=== PATIENT | male | born 1960 | race Caucasian/White ===

== ENCOUNTER 2016-06-10 15:35 | Inpatient (IN) | payer BC, OTHER ==
[2016-06-10] MEDS ORDERED: ASPIRIN 81 MG CHEWABLE TABLETS PO ONE (15:45)
--- NOTE | 2016-06-10 15:45 | PDOC ---
Rapid Medical Evaluation Medical Evaluation: Allergies Allergy/AdvReac Type Severity Reaction Status Date / Time No Known Allergies Allergy Verified 11/24/14 09:48 o I have performed a brief in-person evaluation of this patient. o The patient presents with a chief complaint of: chest pain and dizziness x 2 days, left arm weakness/pain, SOB on exertion. 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 o Pertinent physical exam findings: tachycardic, no LE edema o I have ordered the following: ekg, labs, cxr, ASA o The patient will proceed to the ED for further evaluation. <Ludivina Villa - Last Filed: 06/10/16 15:36> Medical Evaluation: Allergies Allergy/AdvReac Type Severity Reaction Status Date / Time No Known Allergies Allergy Verified 11/24/14 09:48 Vital Signs Temp Pulse Resp BP Pulse Ox 98.4 F 110 H 18 130/74 100 06/10/16 17:49 06/10/16 17:49 06/10/16 17:49 06/10/16 17:49 06/10/16 17:49 <Yolanda Devlin - Last Filed: 06/10/16 18:14> Time Seen by Provider: 06/10/16 15:36
[2016-06-10 15:47] VITALS: BMI 28.1
--- NOTE | 2016-06-10 15:55 | EKG ---
Test Reason : Blood Pressure : / mmHG Vent. Rate : 108 BPM Atrial Rate : 108 BPM P-R Int : 128 ms QRS Dur : 072 ms QT Int : 320 ms P-R-T Axes : 042 032 043 degrees QTc Int : 428 ms SINUS TACHYCARDIA NONSPECIFIC T WAVE ABNORMALITY ABNORMAL ECG WHEN COMPARED WITH ECG OF 24-NOV-2014 15:20, VENT. RATE HAS INCREASED BY 49 BPM T WAVE VARIATION Confirmed by SAÚL KIMBLE MD ([id number]) on 06/10/2016 3:54:41 PM Referred By: Confirmed By:SAÚL KIMBLE MD
[2016-06-10 17:11] LABS: BASOPHIL 0.4 % (0-2.0); EOSINOPHIL 0.4 % (0-4.5); MCH 28.2 pg (25.7-33.7); MCHC 33.3 g/dl (32.0-35.9); MEAN CELL VOLUME 84.8 fl (80-96); MEAN PLT VOLUME 7.8 fl (7.5-11.1); NEUTROPHILS 76.3 % (42.8-82.8); PLATELET COUNT 223 K/MM3 (134-434); RDW 13.6 % (11.9-15.9); WHITE BLOOD COUNT 11.8 K/mm3 (4.0-10.0)
[2016-06-10] MEDS ORDERED: PANTOPRAZOLE SODIUM 40 MG in SODIUM CHLORIDE 100 ML IVPB ONE (17:22)
[2016-06-10] MEDS ORDERED: PANTOPRAZOLE SODIUM 100 ML IVPB ONE (17:38)
--- NOTE | 2016-06-10 18:15 | PDOC ---
History of Present Illness <Stacy Jensena - Last Filed: 06/10/16 19:31> <Yolanda Devlin - Last Filed: 06/11/16 01:52> - General Chief Complaint: Chest Pain Stated Complaint: CHEST PAIN, LT HAND NUMBNESS Time Seen by Provider: 06/10/16 15:36 - History of Present Illness Initial Comments: 06/10/16 18:15 Patient is a 56 year old male with significant medical hx of [place] x 2 with cardiac stent (on Effient) who is presenting to the ED with two days of lightheadedness, dizziness, dyspnea on exertion, and black, tarry stools. The patient complains of sudden dizziness and lightheadedness that occur with positional change and standing up. He endorses exertional dyspnea, specifically when he walks, which he states is unusual. The patient also complains of diarrhea, epigastric pain, and lower extremity cramping. He denies fever, chills , vomiting, and chest pain. PMD: Claus Williamson MD Bss Solution Architect: Rock Gonzales MD Surgical Hx: Appendectomy, one cardiac stent x 1 (2014) NKDA (Georgia Jensen) Past History <Georgia Jensen - Last Filed: 06/10/16 19:31> - Past Medical History Cardiac Disorders: Yes (stent) - Surgical History Abdominal Surgery: Yes Appendectomy: Yes Cardiac Surgery: Yes (stent) - Psycho/Social/Smoking Cessation Hx Anxiety: No Suicidal Ideation: No Smoking History: Never smoked Have you smoked in the past 12 months: No If you are a former smoker, when did you quit?: 2009 Cigars Per Day: 1 Hx Alcohol Use: No Drug/Substance Use Hx: No Substance Use Type: None Hx Substance Use Treatment: No <Yolanda Devlin - Last Filed: 06/11/16 01:52> - Past Medical History Allergies/Adverse Reactions: Allergies Allergy/AdvReac Type Severity Reaction Status Date / Time No Known Allergies Allergy Verified 11/24/14 09:48 Home Medications: Ambulatory Orders Lisinopril [Zestril] 2.5 mg PO DAILY 06/10/16 Metoprolol Tartrate 25 mg PO DAILY 06/10/16 Prasugrel HCl [Effient] 10 mg PO DAILY 06/10/16 Rosuvastatin Calcium [Crestor] 10 mg PO DAILY 06/10/16 Cardiac Specific PMH - Complaint Specific PMHX Myocardial Infarction: Yes <Yolanda Devlin - Last Filed: 06/11/16 01:52> Review of Systems <CamilaGeorgia - Last Filed: 06/10/16 19:31> <Yolanda Devlin - Last Filed: 06/11/16 01:52> - Review of Systems Comments:: 06/10/16 18:17 CONSTITUTIONAL: Absent: fever, chills, diaphoresis, generalized weakness, malaise, loss of appetite HEENT: Absent: rhinorrhea, nasal congestion, throat pain, throat swelling, difficulty swallowing, mouth swelling, ear pain, eye pain, visual changes CARDIOVASCULAR: Present: lightheadedness Absent: chest pain, syncope, palpitations, irregular heart rate, peripheral edema RESPIRATORY: Present: dyspnea with exertion Absent: cough, shortness of breath, orthopnea, wheezing, stridor, hemoptysis GASTROINTESTINAL: Present: epigastric pain, diarrhea, black stooling Absent: abdominal distension, nausea, vomiting, constipation, hematochezia GENITOURINARY: Absent: dysuria, frequency, urgency, hesitancy, hematuria, flank pain, genital pain MUSCULOSKELETAL: Present: lower extremity cramping Absent: myalgia, arthralgia, joint swelling SKIN: Absent: rash, itching, pallor HEMATOLOGIC/IMMUNOLOGIC: Absent: easy bleeding, easy bruising, lymphadenopathy, frequent infections ENDOCRINE: Absent: unexplained weight gain, unexplained weight loss, heat intolerance, cold intolerance NEUROLOGIC: Present: dizziness Absent: headache, focal weakness or paresthesia, unsteady gait, seizure, mental status changes, bladder or bowel incontinence. PSYCHIATRIC: Absent: anxiety, depression, suicidal or homicidal ideation, hallucinations (Georgia Jensen) *Physical Exam <CamilaGeorgia - Last Filed: 06/10/16 19:31> <Yolanda Devlin - Last Filed: 06/11/16 01:52> - Vital Signs Last Vital Signs Temp Pulse Resp BP Pulse Ox 98 F 76 18 109/68 98 06/11/16 01:15 06/11/16 01:15 06/11/16 01:15 06/11/16 01:15 06/11/16 01:15 - Physical Exam Comments: 06/10/16 18:18 GENERAL: Well developed, well nourished. Awake and alert. No acute distress. HEENT: Normocephalic, atraumatic. PERRLA, EOMI. No conjunctival pallor. Sclera are non- icteric. Moist mucous membranes. Oropharynx is clear. NECK: Supple. Full ROM. No JVD. Carotid pulses 2+ and symmetric, without bruits. No thyromegaly. No lymphadenopathy. CARDIOVASCULAR: Tachycardic. No murmurs, rubs, or gallops. Distal pulses are 2+ and symmetric. PULMONARY: No evidence of respiratory distress. Lungs clear to auscultation bilaterally. No wheezing, rales or rhonchi. ABDOMINAL: Soft. Non-tender. Non-distended. No rebound or guarding. No organomegaly. Normoactive bowel sounds. MUSCULOSKELETAL: Normal range of motion at all joints. No bony deformities or tenderness. No CVA tenderness. EXTREMITIES: No cyanosis. No clubbing. No edema. No calf tenderness. SKIN: Warm and dry. Normal capillary refill. No rashes. No jaundice. NEUROLOGICAL: Alert, awake, appropriate. Cranial nerves 2-12 intact. Normal speech. Gait is normal without ataxia. PSYCHIATRIC: Cooperative. Good eye contact. Appropriate mood and affect. RECTAL: Scant stool in the vault. (Georgia Jensen) ED Treatment Course - LABORATORY CBC & Chemistry Diagram: 06/10/16 16:50 06/10/16 16:50 - Consult/PCP Time Called: 19:30 (Spoke with Dr. Gonzales, he requested to hold the Effient.) Case discussed with personal care physician: Rock Gonzales <Georgia Jensen - Last Filed: 06/10/16 19:31> - LABORATORY CBC & Chemistry Diagram: 06/10/16 16:50 06/10/16 16:50 <Yolanda Devlin - Last Filed: 06/11/16 01:52> - ADDITIONAL ORDERS Additional order review: Laboratory Results 06/10/16 06/10/16 06/10/16 17:10 16:50 16:50 INR Sodium Potassium Chloride Carbon Dioxide Anion Gap BUN Creatinine Creat Clearance w eGFR Random Glucose Calcium Magnesium Total Bilirubin AST ALT Alkaline Phosphatase Creatine Kinase Creatine Kinase Index CK-MB (CK-2) CK-MB (CK-2) Rel Index Cancelled Troponin I Total Protein Albumin Stool Occult Blood Positive Blood Type O POSITIVE Antibody Screen Negative Crossmatch See Detail 06/10/16 06/10/16 16:50 16:50 INR 1.23 H Sodium 141 Potassium 4.0 Chloride 110 H Carbon Dioxide 21 Anion Gap 10 BUN 28 H D Creatinine 0.8 Creat Clearance w eGFR > 60 Random Glucose 134 H D Calcium 7.4 L Magnesium 1.9 Total Bilirubin 0.2 D AST 14 L D ALT 32 D Alkaline Phosphatase 37 L D Creatine Kinase 263 D Creatine Kinase Index 0.7 CK-MB (CK-2) 1.729 CK-MB (CK-2) Rel Index Troponin I < 0.02 D Total Protein 5.5 L D Albumin 2.9 L D Stool Occult Blood Blood Type Antibody Screen Crossmatch 06/10/16 16:50 RBC 2.64 L D MCV 84.8 MCHC 33.3 RDW 13.6 MPV 7.8 Neutrophils % 76.3 Lymphocytes % 14.4 D Monocytes % 8.5 Eosinophils % 0.4 Basophils % 0.4 - Medications Given in the ED: ED Medications Discontinued Medications Generic Name Dose Route Start Last Admin Trade Name Freq PRN Reason Stop Dose Admin Aspirin 162 mg 06/10/16 15:45 06/10/16 17:42 Asa - PO 06/10/16 15:46 Not Given ONCE ONE Pantoprazole Sodium 40 mg/ 100 mls @ 200 mls/hr 06/10/16 17:22 06/10/16 17:41 Sodium Chloride IVPB 06/10/16 17:51 200 mls/hr ONCE ONE Administration Medical Decision Making <Georgia Jensen - Last Filed: 06/10/16 19:31> - Critical Care Time Total Critical Care Time (minutes): 120 Critical Care Statement: The care of this patient involved high complexity decision making to prevent further life threatening deterioration of the patient 's condition and/or to evalute & treat vital organ system(s) failure or risk of failure. <Yolanda Devlin - Last Filed: 06/11/16 01:52> - Medical Decision Making 06/11/16 01:50 56 YO MALE HAD 2 DAYS OF EXERTIONAL DYSPNEA,DIZZINESS,THEN DEV CHEST PAIN AND BLACK TARRY STOOLS hbg only 7 and hct 22, positive stool blood -pt admitted for transfusions -spoke w Dr Gonzales and brooklynn will be held -first cardiac enzyme negative (Yolanda Devlin) *DC/Admit/Observation/Transfer <Georgia Jensen - Last Filed: 06/10/16 19:31> - Discharge Dispostion Admit: Yes <Yoalnda Devlin - Last Filed: 06/11/16 01:52> Diagnosis at time of Disposition: Tachycardia Chest pain Qualifiers: Chest pain type: unspecified Qualified Code(s): R07.9 - Chest pain, unspecified GI bleed Qualifiers: GI bleed type/associated pathology: unspecified gastrointestinal hemorrhage type Qualified Code(s): K92.2 - Gastrointestinal hemorrhage, unspecified Anemia Qualifiers: Anemia type: unspecified type Qualified Code(s): D64.9 - Anemia, unspecified - Referrals - Attestations Scribe Attestion: 06/10/16 18:19 Documentation prepared by Georgia Jensen, acting as medical driver for Yolanda Devlin MD. (Georgia Jensen)
[2016-06-10 18:37] LABS: ALBUMIN 2.9 g/dl (3.4-5.0); ANION GAP 10 (8-16); BILIRUBIN,TOTAL 0.2 mg/dL (0.2-1.0); CALCIUM 7.4 mg/dL (8.5-10.1); CO2 21 mmol/L (21-32); CREATININE 0.8 mg/dL (0.7-1.3); GLUCOSE,RANDOM 134 mg/dL (74-106); MAGNESIUM 1.9 mg/dL (1.8-2.4); SGOT/AST 14 U/L (15-37); SGPT/ALT 32 U/L (12-78); TOT PROT 5.5 g/dl (6.4-8.2)
[2016-06-10 18:40] LABS: ALK PHOS 37 U/L (45-117); TROPONIN I < 0.02 ng/ml (0.00-0.05)
[2016-06-10 18:50] LABS: INR 1.23 (0.82-1.09); PROTHROMBIN TIME (PATIENT) 13.6 SEC (9.98-11.88)
--- NOTE | 2016-06-10 20:06 | HP ---
CHIEF COMPLAINT: Dizziness, black colored stool PCP: Claus Johnson Dr. (Field Agent) HISTORY OF PRESENT ILLNESS: Patient is a 56-year-old male presented to the ED with the chief complaints of dizziness and black colored stool. As per the patient, he noticed black colored stool x 3days, moderate in amount. Has been having 3-4 episodes of bowl movements, fowl smelling, associated with Left upper quadrant pain, 5/10 in intensity, non radiating, pressure type. Abdominal pain was associated with nausea but no episodes of vomiting. Patient mentions that since 2days he has been feeling very dizzy, says 'room spinning around me'. Also reports of having shortness of breath on exertion since 2 days which he never had before. Had palpitations on/off. Denies chest pain or cough. Had fevers (not recorded) with chills but no rigors. Normally he sweats at night and was feeling very hot for the past few days, had to open the windows at night. Also mentions of having numbness on the left arms and fingers but no tingling sensation Denies headache, loc or trauma. Patient had a large bowel movement here in the ED, it was dark colored stool, fowl smelling. He felt very dizzy even walking few steps but didn't fall. ER course was notable for: (1) Tachycardic; Slight leukocytosis (11.8); H/H 7.4/22.4; Troponin x 1 negative (2) Stool of heme occult positive (3) Aspirin 162mg, Pantoprazole 40mg Recent Travel: None PAST MEDICAL HISTORY: [place] x 2 ( x 1stents) on Prasugrel, Duodenal ulcer PAST SURGICAL HISTORY: Appendectomy, had surgery in his nose Social History: Smoking: Quit 4-5yrs ago Alcohol: Everyday-1 glass of wine/day Drugs: Denies Family History: Unknown Allergies No Known Allergies Allergy (Verified 11/24/14 09:48) HOME MEDICATIONS: Home Medications Medication Instructions Recorded Lisinopril [Zestril] 2.5 mg PO DAILY 06/10/16 Metoprolol Tartrate 25 mg PO DAILY 06/10/16 Prasugrel HCl [Effient] 10 mg PO DAILY 06/10/16 Rosuvastatin Calcium [Crestor] 10 mg PO DAILY 06/10/16 REVIEW OF SYSTEMS CONSTITUTIONAL: Present: generalized weakness Absent: fever, chills, diaphoresis, , malaise, loss of appetite, weight change HEENT: Absent: rhinorrhea, nasal congestion, throat pain, throat swelling, difficulty swallowing, mouth swelling, ear pain, eye pain, visual changes CARDIOVASCULAR: Absent: chest pain, syncope, palpitations, irregular heart rate, lightheadedness , peripheral edema RESPIRATORY: Absent: cough, shortness of breath, dyspnea with exertion, orthopnea, wheezing, stridor, hemoptysis GASTROINTESTINAL: Present: abdominal pain, black colored stool, diarrhea Absent: abdominal distension, nausea, vomiting, constipation. GENITOURINARY: Absent: dysuria, frequency, urgency, hesitancy, hematuria, flank pain, genital pain MUSCULOSKELETAL: Absent: myalgia, arthralgia, joint swelling, back pain, neck pain SKIN: Absent: rash, itching, pallor HEMATOLOGIC/IMMUNOLOGIC: Absent: easy bleeding, easy bruising, lymphadenopathy, frequent infections ENDOCRINE: Absent: unexplained weight gain, unexplained weight loss, heat intolerance, cold intolerance NEUROLOGIC: Present: dizziness Absent: headache, focal weakness or paresthesias,unsteady gait, seizure, mental status changes, bladder or bowel incontinence PSYCHIATRIC: Absent: anxiety, depression, suicidal or homicidal ideation, hallucinations. PHYSICAL EXAMINATION GENERAL: Patient is lying comforbaly in bed, Awake, alert, and fully oriented, in no acute distress. HEAD: Normal with no signs of trauma. EYES: EOM intact, mild pallor, no icterus, PEERLA EARS, NOSE, THROAT: Ears normal. Moist mucous membranes. NECK: Supple LUNGS: Breath sounds equal, clear to auscultation bilaterally. No wheezes, and no crackles. No accessory muscle use. HEART: Regular rate and rhythm, normal S1 and S2 without murmur, rub or gallop. ABDOMEN: Soft, tenderness over the left upper quadrant, not distended, normoactive bowel sounds, no guarding, no rebound, no masses. No hepatomegaly or splenomegaly. Per rectal exam: Refused MUSCULOSKELETAL: Normal range of motion at all joints. No bony deformities or tenderness. No CVA tenderness. UPPER EXTREMITIES: 2+ pulses, warm, well-perfused. No cyanosis. No clubbing. Cap refill <2 seconds. No peripheral edema. LOWER EXTREMITIES: 2+ pulses, warm, well-perfused. No calf tenderness. No peripheral edema. NEUROLOGICAL: Cranial nerves II-XII intact. Normal speech. Normal gait. PSYCHIATRIC: Cooperative. Good eye contact. Appropriate mood and affect. SKIN: Warm, dry, normal turgor, no rashes or lesions noted. ASSESSMENT/PLAN: Patient is a 56-year-old male with significant past medical history of [place] x 2 ( x 1stents) on Prasugrel, Duodenal ulcers presented to the ED with the chief complaints of dizziness and black colored stool. # Gastrointestinal bleed Patient presented with black colored stool Tachycardic; Slight leukocytosis (11.8); H/H 7.4/22.4; Troponin x 1 negative In the ED, patient received Aspirin 162mg, Pantoprazole 40mg Stool of heme occult positive Admitted in Telemetry 2units of PRBC-will recheck CBC after second transfusion On Protonix drip GI consult placed Most likely needs UGI and LGI endoscopy once patient gets stabilized IV fluids Monitor H/H # Symptomatic Anemia-likely from GI bleed 2units of PRBC # CAD s/p 1 stent Hold Prasugrel due to increased risk of bleeding Hold aspirin # Troponin x 1 negative Next set of troponin pending # FEN IV NS @83mls/hr Electrolytes to be repeated tomorrow NPO # Prophylaxis For GI: On Protonix drip For DVT: On Scds # Code Status: Full code # Dispo: Admitted in Tele. Duration of stay unknown Illness, Investigation and Plan of care explained to the patient. He verbalized understanding. Case seen and discussed with Dr. Mullins. Visit type - Emergency Visit Emergency Visit: Yes ED Registration Date: 06/10/16 Care time: The patient presented to the Emergency Department on the above date and was hospitalized for further evaluation of their emergent condition. - New Patient This patient is new to me today: Yes Date on this admission: 06/10/16 - Critical Care Critical Care patient: No
--- NOTE | 2016-06-10 20:10 | PN ---
<SusannaNereyda robertson - Last Filed: 06/10/16 20:10> Teaching Attending Note Name of Resident: Lilliana Eastman ATTENDING PHYSICIAN STATEMENT I saw and evaluated the patient. I reviewed the resident's note and discussed the case with the resident. I agree with the resident's findings and plan as documented. SUBJECTIVE: OBJECTIVE: ASSESSMENT AND PLAN: <YaritzaMarkos - Last Filed: 06/11/16 02:07> Teaching Attending Note ATTENDING PHYSICIAN STATEMENT I saw and evaluated the patient. I reviewed the resident's note and discussed the case with the resident. I agree with the resident's findings and plan as documented.` SUBJECTIVE: The Patient is a 56 year old male with a significant medical hx of [place] x 2 with cardiac stent (on Effient) who presented to the ED with two days of lightheadedness, dizziness, dyspnea on exertion, abdominal pain, and melena. The patient reported that his lightheadedness, dizziness, and dyspnea were exacerbated by sitting up and walking. The patient described his abdominal pain as non-radiating, pressure sensation, located in the left upper quadrant and a 5 /10 in severity. The patient reported associated diarrhea and epigastric pain. He denies fever, chills, vomiting, and chest pain. OBJECTIVE: Vital Signs: Last Vital Signs Temp Pulse Resp BP Pulse Ox 98.4 F 97 H 18 110/66 100 06/10/16 21:00 06/10/16 21:00 06/10/16 21:00 06/10/16 21:00 06/10/16 21:00 Physical Exam: GEN: NAD HEENT: NCAT, PERRL CARD: RRR, S1 S2 RESP: CTAB ABD: NT, BWS x4 EXT: - CCE RECTAL: Deferred Labs: CBCD WBC 11.8 K/mm3 (4.0-10.0) H D 06/10/16 16:50 RBC 2.64 M/mm3 (4.00-5.60) L D 06/10/16 16:50 Hgb 7.4 GM/dL (11.7-16.9) L D 06/10/16 16:50 Hct 22.4 % (35.4-49) L D 06/10/16 16:50 MCV 84.8 fl (80-96) 06/10/16 16:50 MCHC 33.3 g/dl (32.0-35.9) 06/10/16 16:50 RDW 13.6 % (11.9-15.9) 06/10/16 16:50 Plt Count 223 K/MM3 (134-434) D 06/10/16 16:50 MPV 7.8 fl (7.5-11.1) 06/10/16 16:50 CMP Sodium 141 mmol/L (136-145) 06/10/16 16:50 Potassium 4.0 mmol/L (3.5-5.1) 06/10/16 16:50 Chloride 110 mmol/L (98-107) H 06/10/16 16:50 Carbon Dioxide 21 mmol/L (21-32) 06/10/16 16:50 Anion Gap 10 (8-16) 06/10/16 16:50 BUN 28 mg/dL (7-18) H D 06/10/16 16:50 Creatinine 0.8 mg/dL (0.7-1.3) 06/10/16 16:50 Creat Clearance w eGFR > 60 (>60) 06/10/16 16:50 Calcium 7.4 mg/dL (8.5-10.1) L 06/10/16 16:50 Total Bilirubin 0.2 mg/dL (0.2-1.0) D 06/10/16 16:50 AST 14 U/L (15-37) L D 06/10/16 16:50 ALT 32 U/L (12-78) D 06/10/16 16:50 Alkaline Phosphatase 37 U/L (45-117) L D 06/10/16 16:50 Total Protein 5.5 g/dl (6.4-8.2) L D 06/10/16 16:50 Albumin 2.9 g/dl (3.4-5.0) L D 06/10/16 16:50 Imagin. CXR Impression: No official read. ASSESSMENT AND PLAN: The Patient is a 56 year old male with a significant medical hx of [place] x 2 with cardiac stent who presented with black tarry stools, being admitted for upper GI bleed. 1. Upper GI bleed -Hold aspirin -Hold effient -GI consult -NPO -2 large bore IVs -Being transf 2 units PRBCs -Repeat CBC post transfu -Continue protonix GTT 2. CAD s/p stents -Hold Aspirin -Hold Effient -Hold Antihypertensive medications for now -Hold Statin 3. DVT PPX- low risk SCDs Admit to non cardiac tele. Documentation prepared by Markos Vigil, acting as medical records director for Dr. Nereyda Mullins MD.
[2016-06-10] MEDS ORDERED: SODIUM CHLORIDE 1,000 ML IV SCH (20:15)
[2016-06-10] MEDS ORDERED: PANTOPRAZOLE SODIUM 40 MG VIAL ONE (22:33)
[2016-06-10] MEDS: PANTOPRAZOLE SODIUM 80 MG in SODIUM CHLORIDE 100 ML IVPB SCH (22:40)
[2016-06-11] MEDS: PANTOPRAZOLE SODIUM 80 MG in SODIUM CHLORIDE 100 ML IVPB SCH ×3 (05:58→17:42)
[2016-06-11 08:09] LABS: BASOPHIL 0.6 % (0-2.0); EOSINOPHIL 0.8 % (0-4.5); MCH 28.4 pg (25.7-33.7); MCHC 33.7 g/dl (32.0-35.9); MEAN CELL VOLUME 84.3 fl (80-96); MEAN PLT VOLUME 7.7 fl (7.5-11.1); NEUTROPHILS 65.5 % (42.8-82.8); PLATELET COUNT 171 K/MM3 (134-434); RDW 13.4 % (11.9-15.9); WHITE BLOOD COUNT 11.1 K/mm3 (4.0-10.0)
[2016-06-11 08:29] LABS: TROPONIN I < 0.02 ng/ml (0.00-0.05)
[2016-06-11 08:43] LABS: ALBUMIN 2.9 g/dl (3.4-5.0); ALK PHOS 34 U/L (45-117); ANION GAP 7 (8-16); BILIRUBIN,TOTAL 0.5 mg/dL (0.2-1.0); CALCIUM 7.7 mg/dL (8.5-10.1); CO2 25 mmol/L (21-32); CREATININE 0.8 mg/dL (0.7-1.3); GLUCOSE,RANDOM 91 mg/dL (74-106); PHOSPHOROUS 2.7 mg/dL (2.5-4.9); SGOT/AST 13 U/L (15-37); SGPT/ALT 23 U/L (12-78); TOT PROT 5.1 g/dl (6.4-8.2)
[2016-06-11 10:14] LABS: MCH 28.5 pg (25.7-33.7); MCHC 33.5 g/dl (32.0-35.9); MEAN PLT VOLUME 7.5 fl (7.5-11.1); PLATELET COUNT 180 K/MM3 (134-434); RDW 13.6 % (11.9-15.9); WHITE BLOOD COUNT 11.2 K/mm3 (4.0-10.0)
--- NOTE | 2016-06-11 12:35 | EKG ---
Test Reason : Blood Pressure : / mmHG Vent. Rate : 074 BPM Atrial Rate : 074 BPM P-R Int : 154 ms QRS Dur : 080 ms QT Int : 374 ms P-R-T Axes : 007 050 -14 degrees QTc Int : 415 ms NORMAL SINUS RHYTHM NONSPECIFIC T WAVE ABNORMALITY ABNORMAL ECG WHEN COMPARED WITH ECG OF 10-JUN-2016 14:45, NONSPECIFIC T WAVE ABNORMALITY NOW EVIDENT IN INFERIOR LEADS Confirmed by JARETT AQUINO, ASAD ([id number]) on 06/11/2016 12:34:55 PM Referred By: MABEL RICCI Confirmed By:ASAD DENSON MD
--- NOTE | 2016-06-11 13:14 | CON.GI ---
Consult Consult Specialty:: Gastroenterology Referred by:: Nereyda Gupta M.D. Reason for Consultation:: GI bleeding - History of Present Illness Chief Complaint: Left abdominal crampy pain and hematochezia for the past 3 days History of Present Illness: 56M is admitted after having bloody bowel movements about twice a day for the past 3 days. He has been having crampy left abdominal pain that is relieved by the bloody bowel movements that have ranged from black to red clots. He has also had dry heaving. No previous bleeding but he did have a UGI ulcer on EGD remotely. He describes having a colonoscopy about 2 years ago which he believes was normal but cannot recall who did the procedure. His pain has resolved. No BMs today. - History Source History Provided By: Patient Limitations to Obtaining History: No Limitations - Past Medical History Cardio/Vascular: Yes: CAD, HTN, Hyperlipdemia, [place] (2014 leading to left main coronary artery stenting at [facility]) Gastrointestinal: Yes: GERD, Peptic Ulcer Disease Endocrine: Yes: Diabetes Mellitus (borderline, diet controlled) - Past Surgical History Past Surgical History: Yes: Appendectomy - Alcohol/Substance Use Hx Alcohol Use: Yes (socialy) - Smoking History Smoking history: Former smoker Have you smoked in the past 12 months: No If you are a former smoker, when did you quit?: 2011-cigars - Social History Usual Living Arrangement: With Spouse ADL: Independent 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[employer], 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 Place of : [facility] History of Recent Travel: No Home Medications - Allergies Allergies/Adverse Reactions: Allergies Allergy/AdvReac Type Severity Reaction Status Date / Time No Known Allergies Allergy Verified 11/24/14 09:48 - Home Medications Home Medications: Ambulatory Orders Lisinopril [Zestril] 2.5 mg PO DAILY 06/10/16 Metoprolol Tartrate 25 mg PO DAILY 06/10/16 Prasugrel HCl [Effient] 10 mg PO DAILY 06/10/16 Rosuvastatin Calcium [Crestor] 10 mg PO DAILY 06/10/16 Family Disease History - Family Disease History Family Disease History: Heart Disease: Mother ( [place] 67), Other: Father (alive ) Review of Systems - Review of Systems Constitutional: reports: No Symptoms Eyes: reports: No Symptoms HENT: reports: No Symptoms Neck: reports: No Symptoms Cardiovascular: reports: No Symptoms Gastrointestinal: reports: No Symptoms, Abdominal Pain, Rectal Bleeding, Vomiting Genitourinary: reports: No Symptoms Musculoskeletal: reports: No Symptoms Integumentary: reports: No Symptoms Neurological: reports: No Symptoms Endocrine: reports: No Symptoms Hematology/Lymphatic: reports: No Symptoms Psychiatric: reports: No Symptoms Physical Exam-GI Vital Signs: Vital Signs Temperature 98.3 F 06/11/16 09:00 Pulse Rate 72 06/11/16 09:00 Respiratory Rate 20 06/11/16 09:00 Blood Pressure 107/60 06/11/16 09:00 O2 Sat by Pulse Oximetry (%) 98 06/11/16 09:00 CBC,CMP WBC 11.2 K/mm3 (4.0-10.0) H 06/11/16 10:00 RBC 3.14 M/mm3 (4.00-5.60) L 06/11/16 10:00 Hgb 9.0 GM/dL (11.7-16.9) L 06/11/16 10:00 Hct 26.7 % (35.4-49) L 06/11/16 10:00 MCV 85.0 fl (80-96) 06/11/16 10:00 MCHC 33.5 g/dl (32.0-35.9) 06/11/16 10:00 RDW 13.6 % (11.9-15.9) 06/11/16 10:00 Plt Count 180 K/MM3 (134-434) 06/11/16 10:00 MPV 7.5 fl (7.5-11.1) 06/11/16 10:00 Neutrophils % 65.5 % (42.8-82.8) 06/11/16 06:17 Lymphocytes % 21.5 % (8-40) D 06/11/16 06:17 Monocytes % 11.6 % (3.8-10.2) H 06/11/16 06:17 Eosinophils % 0.8 % (0-4.5) D 06/11/16 06:17 Basophils % 0.6 % (0-2.0) 06/11/16 06:17 Sodium 141 mmol/L (136-145) 06/11/16 06:17 Potassium 3.9 mmol/L (3.5-5.1) 06/11/16 06:17 Chloride 109 mmol/L (98-107) H 06/11/16 06:17 Carbon Dioxide 25 mmol/L (21-32) 06/11/16 06:17 Anion Gap 7 (8-16) L 06/11/16 06:17 BUN 17 mg/dL (7-18) D 06/11/16 06:17 Creatinine 0.8 mg/dL (0.7-1.3) 06/11/16 06:17 Creat Clearance w eGFR > 60 (>60) 06/11/16 06:17 Random Glucose 91 mg/dL (74-106) D 06/11/16 06:17 Calcium 7.7 mg/dL (8.5-10.1) L 06/11/16 06:17 Phosphorus 2.7 mg/dL (2.5-4.9) 06/11/16 06:17 Magnesium 2.0 mg/dL (1.8-2.4) 06/11/16 06:17 Total Bilirubin 0.5 mg/dL (0.2-1.0) D 06/11/16 06:17 AST 13 U/L (15-37) L 06/11/16 06:17 ALT 23 U/L (12-78) D 06/11/16 06:17 Alkaline Phosphatase 34 U/L (45-117) L 06/11/16 06:17 Creatine Kinase 188 IU/L (39-308) D 06/11/16 06:17 Creatine Kinase Index 0.7 % (0.0-5.0) 06/11/16 06:17 CK-MB (CK-2) 1.268 ng/ml (0.5-3.6) 06/11/16 06:17 CK-MB (CK-2) Rel Index Cancelled 06/10/16 16:50 Troponin I < 0.02 ng/ml (0.00-0.05) 06/11/16 06:17 Total Protein 5.1 g/dl (6.4-8.2) L 06/11/16 06:17 Albumin 2.9 g/dl (3.4-5.0) L 06/11/16 06:17 Current Medications Generic Name Dose Route Start Last Admin Trade Name Freq PRN Reason Stop Dose Admin Sodium Chloride 1,000 mls @ 83 mls/hr 06/10/16 20:15 06/10/16 21:11 Normal Saline - IV 83 mls/hr ASDIR [facility] Administration Pantoprazole Sodium 80 mg/ 100 mls @ 10 mls/hr 06/10/16 21:45 06/11/16 09:31 Sodium Chloride IVPB 10 mls/hr Q10H [facility] Administration 8 MG/HR Constitutional: Yes: Calm Eyes: Yes: Conjunctiva Clear HENT: Yes: Atraumatic Neck: Yes: Trachea Midline Cardiovascular: Yes: Regular Rate and Rhythm Respiratory: Yes: CTA Bilaterally Gastrointestinal Inspection: Yes: Scars (healed RLQ appendectomy incision) ...Auscultate: Yes: Normoactive Bowel Sounds ...Palpate: Yes: Soft, Other (nontender) ...Rectal Exam: Yes: Guaiac Positive, Other (2+ prostate) Musculoskeletal: Yes: WNL Extremities: Yes: WNL Edema: No Peripheral Pulses WNL: Yes Neurological: Yes: Alert, Oriented ...Motor Strength: WNL Psychiatric: Yes: WNL Labs: CBC, BMP 06/11/16 10:00 06/11/16 06:17 INR, PTT INR 1.23 (0.82-1.09) H 06/10/16 16:50 Laboratory Tests 06/10/16 06/10/16 06/10/16 16:50 16:50 16:50 WBC 11.8 H D Hgb 7.4 L D Plt Count 223 D INR 1.23 H BUN 28 H D Creatinine Total Bilirubin AST ALT Alkaline Phosphatase Albumin 06/11/16 06/11/16 06/11/16 06:17 06:17 10:00 WBC Hgb 8.6 L D 9.0 L Plt Count INR BUN 17 D Creatinine 0.8 Total Bilirubin 0.5 D AST 13 L ALT 23 D Alkaline Phosphatase 34 L Albumin 2.9 L Problem List - Problems (1) Abdominal pain Code(s): R10.9 - UNSPECIFIED ABDOMINAL PAIN (2) Vomiting Code(s): R11.10 - VOMITING, UNSPECIFIED (3) History of peptic ulcer Code(s): Z87.11 - PERSONAL HISTORY OF PEPTIC ULCER DISEASE (4) Stented coronary artery Code(s): Z95.5 - PRESENCE OF CORONARY ANGIOPLASTY IMPLANT AND GRAFT (5) History of myocardial infarction Code(s): I25.2 - OLD MYOCARDIAL INFARCTION (6) Hyperlipidemia Code(s): E78.5 - HYPERLIPIDEMIA, UNSPECIFIED Assessment/Plan It is not clear whether Selvin's bleeding is upper or lower GI tract origin. The left sided cramps suggest ischemic colitis but could be bleeding from AVMs or diverticuli. Given that 2 year have passed since his stent was placed I will stop the Effient but will continue aspirin to leave him with some protection. I have advised an EGD to exclude an ulcer, GERD and AVMs as the source of bleeding. I discussed the potential for such complications as perforation and hemorrhage. He has signed an informed consent. I shantell do the EGD tomorrow. If unrevealing then a colonoscopy will need to be repeated. Will continue PPI drip
--- NOTE | 2016-06-11 14:49 | PN ---
Physical Exam: SUBJECTIVE: Patient seen and examined at bedside. feels well states his symtpoms have resolved has not had a bloody BM since yesterday in the ED OBJECTIVE: Vital Signs Period Temp Pulse Resp BP Sys/Stephen Pulse Ox Last 24 Hr 97.6 F-98.4 F 72-97 18-20 107-111/60-77 98-100 GENERAL: The patient is awake, alert, and fully oriented, in no acute distress. HEAD: Normal with no signs of trauma. EYES: PERRL, extraocular movements intact, conjunctival pallor NECK: supple. LUNGS: Breath sounds equal, clear to auscultation bilaterally, no wheezes, no crackles, no accessory muscle use. HEART: Regular rate and rhythm, S1, S2 without murmur, rub or gallop. ABDOMEN: Soft, nontender, nondistended, normoactive bowel sounds, no guarding, no rebound, no hepatosplenomegaly, no masses. NEUROLOGICAL: Cranial nerves II through XII grossly intact Laboratory Results - last 24 hr 06/11/16 06/11/16 06/11/16 06:17 06:17 06:17 WBC 11.1 H RBC 3.03 L Hgb 8.6 L D Hct 25.6 L MCV 84.3 MCHC 33.7 RDW 13.4 Plt Count 171 D MPV 7.7 Neutrophils % 65.5 Lymphocytes % 21.5 D Monocytes % 11.6 H Eosinophils % 0.8 D Basophils % 0.6 Sodium 141 Potassium 3.9 Chloride 109 H Carbon Dioxide 25 Anion Gap 7 L BUN 17 D Creatinine 0.8 Creat Clearance w eGFR > 60 Random Glucose 91 D Calcium 7.7 L Phosphorus 2.7 Magnesium 2.0 Total Bilirubin 0.5 D AST 13 L ALT 23 D Alkaline Phosphatase 34 L Creatine Kinase 188 D Creatine Kinase Index 0.7 CK-MB (CK-2) 1.268 CK-MB (CK-2) Rel Index Troponin I < 0.02 Total Protein 5.1 L Albumin 2.9 L 06/11/16 06/11/16 06:17 10:00 WBC 11.2 H RBC 3.14 L Hgb 9.0 L Hct 26.7 L MCV 85.0 MCHC 33.5 RDW 13.6 Plt Count 180 MPV 7.5 Neutrophils % Lymphocytes % Monocytes % Eosinophils % Basophils % Sodium Potassium Chloride Carbon Dioxide Anion Gap BUN Creatinine Creat Clearance w eGFR Random Glucose Calcium Phosphorus Magnesium Total Bilirubin AST ALT Alkaline Phosphatase Creatine Kinase Creatine Kinase Index CK-MB (CK-2) CK-MB (CK-2) Rel Index Cancelled Troponin I Total Protein Albumin Active Medications Generic Name Dose Route Start Last Admin Trade Name Josiahq PRN Reason Stop Dose Admin Sodium Chloride 1,000 mls @ 83 mls/hr 06/10/16 20:15 06/10/16 21:11 Normal Saline - IV 83 mls/hr ASDIR [facility] Administration Pantoprazole Sodium 80 mg/ 100 mls @ 10 mls/hr 06/10/16 21:45 06/11/16 09:31 Sodium Chloride IVPB 10 mls/hr Q10H [facility] Administration 8 MG/HR ASSESSMENT/PLAN: 56M with extensive cardiac history including HTN HLD RI in the past x 2 s/p stent x1 on effient presents to the ED with chest pain acute onset of dyspnea on exertion and GI bleed. acute symptomatic blood loss anemia secondary to GI bleed: likely upper GI bleed vs lower however lower GI bleed not entirely ruled out. differential diagnosis includes Ulcer (patient states he had an EGD in the past and was told he had an ulcer) received aspirin in the ED and patient is on effient will consider transfusing platelets however Repeat Hb is 9 s/p 2units of PRBC appropriate repeat Hb 9 Will trend CBC q4h GI consult appreciated will do EGD tomorrow CLD NPO past midngiht continue Protonix drip unclear history of gastric vs duodenal ulcer states he was treated with ABx after EGD in the past will send H. Pylori stool antigen Chest pain rule out ACS: Cardiac enzymes negative x2 so far will get one more enzyme. EKG not suspicious for RI Recieved Aspirin in ED CAD s/p stent Hold effient for now hold Crestor for now hold Metoprolol for now HTN: hold metoprolol for now BP well controlled so far HLD: hold crestor for now FEN Normal saline at 83mls/hr no electrolyte abnormalities CLD--> NPO past midnight for EGD tomorrow PPx: Hold medical DVT PPx as patient is having GI Bleed. Will place SCDs Protonix gtt Patient seen and case discussed with Dr. Stark Visit type - Emergency Visit Emergency Visit: Yes ED Registration Date: 06/10/16 Care time: The patient presented to the Emergency Department on the above date and was hospitalized for further evaluation of their emergent condition. - New Patient This patient is new to me today: Yes Date on this admission: 06/11/16 - Critical Care Critical Care patient: No
--- NOTE | 2016-06-11 14:54 | PN ---
Teaching Attending Note Name of Resident: Franco Hoang ATTENDING PHYSICIAN STATEMENT I saw and evaluated the patient. I reviewed the resident's note and discussed the case with the resident. I agree with the resident's findings and plan as documented. SUBJECTIVE: no fever or chills . Has no abd pain when evaluated this am . no N/V. denied hematemesis . reported black colored stool x 2-3 days he reported ulcers in his stomach 5 years ago , had EGD which showed ulcers and he was treated with Abx x 14 days colonoscopy was done 2 yrs ago OBJECTIVE: NAD , Awake , alert and oriented . MMM CV: RRR no MRG Lungs: CATB Ext : no edema . Abd : soft, NT, ND , NL BS . ASSESSMENT AND PLAN: 56 y/o man with h/o CAD s/p MD and stenting 11/12 , and h/o PUD who presented with rectal bleed weakness, near syncope , and had a syncopal episode in ER . 1- Rectal bleed: suspect upper GI source of the bleed from gastitis Vs PUD . last EGD > 5 yrs ago which showed ulcers. last colonoscopy 2 yrs ago reportedly NL - PPI gtt - repeat H&H at 2 pm and 8 pm. - hold all bP meds - IVF - check HP stool antigen - Appreciate GI consult . EGD tomorrow .if nl for colonoscopy 2- Syncope : due to orthostatic hypotension in setting of GI bleed and acute blood loss anemia . - monitor . transfuse 3- CAD s/p stenting in 11/12. - Due to active bleed , hold antiplt ( pt is only on effient not effient and aspirin ) - hold BB 4- H/o HTN : hold ACEI and BB 5- DVT PX : SCDS .
[2016-06-11 15:09] LABS: BASOPHIL 0.5 % (0-2.0); EOSINOPHIL 0.9 % (0-4.5); MCH 29.1 pg (25.7-33.7); MCHC 34.4 g/dl (32.0-35.9); MEAN CELL VOLUME 84.6 fl (80-96); MEAN PLT VOLUME 7.7 fl (7.5-11.1); NEUTROPHILS 63.9 % (42.8-82.8); PLATELET COUNT 181 K/MM3 (134-434); RDW 13.6 % (11.9-15.9); WHITE BLOOD COUNT 9.9 K/mm3 (4.0-10.0)
[2016-06-11 15:34] LABS: TROPONIN I 0.02 ng/ml (0.00-0.05)
[2016-06-11 19:29] LABS: MCH 28.9 pg (25.7-33.7); MEAN PLT VOLUME 7.4 fl (7.5-11.1); PLATELET COUNT 177 K/MM3 (134-434); RDW 13.5 % (11.9-15.9); WHITE BLOOD COUNT 10.1 K/mm3 (4.0-10.0)
[2016-06-11 23:58] LABS: MCH 28.9 pg (25.7-33.7); MCHC 33.9 g/dl (32.0-35.9); MEAN CELL VOLUME 85.2 fl (80-96); PLATELET COUNT 179 K/MM3 (134-434); RDW 13.7 % (11.9-15.9); WHITE BLOOD COUNT 11.3 K/mm3 (4.0-10.0)
[2016-06-12 07:34] LABS: BASOPHIL 0.6 % (0-2.0); EOSINOPHIL 1.6 % (0-4.5); MCH 28.8 pg (25.7-33.7); MCHC 33.8 g/dl (32.0-35.9); MEAN CELL VOLUME 85.3 fl (80-96); MEAN PLT VOLUME 7.5 fl (7.5-11.1); NEUTROPHILS 72.5 % (42.8-82.8); PLATELET COUNT 178 K/MM3 (134-434); RDW 13.7 % (11.9-15.9); WHITE BLOOD COUNT 11.3 K/mm3 (4.0-10.0)
[2016-06-12 07:40] LABS: INR 1.15 (0.82-1.09); PROTHROMBIN TIME (PATIENT) 12.7 SEC (9.98-11.88)
[2016-06-12 07:50] LABS: C-REACTIVE PROTEIN < 0.3 MG/DL (0.00-0.3)
[2016-06-12 07:51] LABS: ANION GAP 6 (8-16); CALCIUM 7.8 mg/dL (8.5-10.1); CO2 26 mmol/L (21-32); CREATININE 0.8 mg/dL (0.7-1.3); GLUCOSE,RANDOM 87 mg/dL (74-106)
[2016-06-12 08:02] LABS: FERRITIN 50.499 ng/ml (16.4-293.9)
[2016-06-12] MEDS ORDERED: PROPOFOL 40 ML ONE (08:54)
--- NOTE | 2016-06-12 09:48 | PN ---
Progress Note (short form) - Note Progress Note: GI Procedure NOte: Please see EGD report. Two duodenal bulb ulcers found. No active bleeding. Given cardiac stents over 2 years old, will resume aspirin but not Effient and will need pantoprazole concomitantly. Will advance diet. Problem List - Problems (1) Abdominal pain Code(s): R10.9 - UNSPECIFIED ABDOMINAL PAIN (2) Vomiting Code(s): R11.10 - VOMITING, UNSPECIFIED (3) History of peptic ulcer Code(s): Z87.11 - PERSONAL HISTORY OF PEPTIC ULCER DISEASE (4) Stented coronary artery Code(s): Z95.5 - PRESENCE OF CORONARY ANGIOPLASTY IMPLANT AND GRAFT (5) History of myocardial infarction Code(s): I25.2 - OLD MYOCARDIAL INFARCTION (6) Hyperlipidemia Code(s): E78.5 - HYPERLIPIDEMIA, UNSPECIFIED
[2016-06-12] MEDS ORDERED: TETRACAINE/BENZOCAINE/BUTAMBEN 20 GM SPR TP ONE (09:52)
[2016-06-12] MEDS: PANTOPRAZOLE 40 MG TABLET (FP) PO SCH ×2 (11:00→21:49)
[2016-06-12] MEDS: MAG HYDROX/AL HYDROX/SIMETH 30 ML UNIT-DOSE CUP PO SCH ×3 (11:00→21:49)
[2016-06-12] MEDS: ASPIRIN COATED 81 MG TABLET.EC PO SCH (11:00)
--- NOTE | 2016-06-12 11:36 | PN ---
Physical Exam: SUBJECTIVE: Patient seen and examined at bedside. S/P EGD with two duodenal bulb ulcers found feels well no further bleeding OBJECTIVE: Vital Signs Period Temp Pulse Resp BP Sys/Stephen Pulse Ox Last 24 Hr 98 F-98.8 F 68-98 14-22 92-125/50-75 100-100 GENERAL: The patient is awake, alert, and fully oriented, in no acute distress. HEAD: Normal with no signs of trauma. EYES: PERRL, extraocular movements intact, conjunctival pallor NECK: supple. LUNGS: Breath sounds equal, clear to auscultation bilaterally, no wheezes, no crackles, no accessory muscle use. HEART: Regular rate and rhythm, S1, S2 without murmur, rub or gallop. ABDOMEN: Soft, nontender, nondistended, normoactive bowel sounds, no guarding, no rebound, no hepatosplenomegaly, no masses. NEUROLOGICAL: Cranial nerves II through XII grossly intact Laboratory Results - last 24 hr 06/11/16 06/11/16 06/11/16 14:45 14:45 14:45 WBC 9.9 RBC 2.90 L Hgb 8.4 L Hct 24.5 L MCV 84.6 MCHC 34.4 RDW 13.6 Plt Count 181 MPV 7.7 Neutrophils % 63.9 Lymphocytes % 23.9 Monocytes % 10.8 H Eosinophils % 0.9 Basophils % 0.5 INR Sodium Potassium Chloride Carbon Dioxide Anion Gap BUN Creatinine Random Glucose Calcium Ferritin Creatine Kinase 191 Creatine Kinase Index 0.7 CK-MB (CK-2) 1.252 CK-MB (CK-2) Rel Index Cancelled Troponin I 0.02 C-Reactive Protein 06/11/16 06/11/16 06/12/16 19:15 23:30 05:35 WBC 10.1 H 11.3 H RBC 2.93 L 2.89 L Hgb 8.5 L 8.3 L Hct 24.9 L 24.6 L MCV 85.0 85.2 MCHC 34.0 33.9 RDW 13.5 13.7 Plt Count 177 179 MPV 7.4 L 9.0 D Neutrophils % Lymphocytes % Monocytes % Eosinophils % Basophils % INR Sodium 141 Potassium 3.6 Chloride 109 H Carbon Dioxide 26 Anion Gap 6 L BUN 10 D Creatinine 0.8 Random Glucose 87 Calcium 7.8 L Ferritin 50.499 Creatine Kinase Creatine Kinase Index CK-MB (CK-2) CK-MB (CK-2) Rel Index Troponin I C-Reactive Protein < 0.3 06/12/16 06/12/16 05:35 05:35 WBC 11.3 H RBC 2.95 L Hgb 8.5 L Hct 25.1 L MCV 85.3 MCHC 33.8 RDW 13.7 Plt Count 178 MPV 7.5 D Neutrophils % 72.5 Lymphocytes % 15.6 D Monocytes % 9.7 Eosinophils % 1.6 Basophils % 0.6 INR 1.15 H Sodium Potassium Chloride Carbon Dioxide Anion Gap BUN Creatinine Random Glucose Calcium Ferritin Creatine Kinase Creatine Kinase Index CK-MB (CK-2) CK-MB (CK-2) Rel Index Troponin I C-Reactive Protein Active Medications Generic Name Dose Route Start Last Admin Trade Name Freq PRN Reason Stop Dose Admin Al Hydroxide/Mg Hydroxide 30 ml 06/12/16 10:00 06/12/16 11:00 Mylanta Oral Suspension - PO 30 ml Q6H [facility] Administration Aspirin 81 mg 06/12/16 10:00 06/12/16 11:00 Ecotrin - PO 81 mg DAILY [facility] Administration Pantoprazole Sodium 40 mg 06/12/16 10:00 06/12/16 11:00 Protonix - PO 40 mg BID [facility] Administration ASSESSMENT/PLAN: 56M with extensive cardiac history including HTN HLD LA in the past x 2 s/p stent x1 on effient presents to the ED with chest pain acute onset of dyspnea on exertion and GI bleed. acute symptomatic blood loss anemia secondary to GI bleed: likely upper GI bleed given 2 duodenal bulb ulcers found. No active bleeding s/p 2 units PRBCs on this admission Hb stable Stop protonix gtt start protonix PO BID CBC in AM CLD advance as tolerated f/u with GI as outpatient stop effient start aspirin Chest pain rule out ACS: Cardiac enzymes negative x3 EKG not suspicious for LA Received Aspirin in ED CAD s/p stent Hold effient and crestor for now stop effient stents 2 years old can start asprin HTN: hold metoprolol for now BP well controlled so far HLD: hold crestor for now FEN Stop IVF no electrolyte abnormalities CLD advance as tolerated PPx: SCDs Protonix gtt Patient seen and case discussed with Dr. Valdez Discharge home tomorrow Visit type - Emergency Visit Emergency Visit: Yes ED Registration Date: 06/10/16 Care time: The patient presented to the Emergency Department on the above date and was hospitalized for further evaluation of their emergent condition. - New Patient This patient is new to me today: No - Critical Care Critical Care patient: No
--- NOTE | 2016-06-12 14:51 | PN ---
Teaching Attending Note Name of Resident: Franco Hoang ATTENDING PHYSICIAN STATEMENT I saw and evaluated the patient. I reviewed the resident's note and discussed the case with the resident. I agree with the resident's findings and plan as documented. comfrotable, NAd. Vital Signs Temperature 98.5 F 06/12/16 09:20 Pulse Rate 72 06/12/16 09:50 Respiratory Rate 22 06/12/16 09:50 Blood Pressure 105/56 06/12/16 09:50 O2 Sat by Pulse Oximetry (%) 96 06/12/16 11:47 CBCD WBC 11.3 K/mm3 (4.0-10.0) H 06/12/16 05:35 RBC 2.95 M/mm3 (4.00-5.60) L 06/12/16 05:35 Hgb 8.5 GM/dL (11.7-16.9) L 06/12/16 05:35 Hct 25.1 % (35.4-49) L 06/12/16 05:35 MCV 85.3 fl (80-96) 06/12/16 05:35 MCHC 33.8 g/dl (32.0-35.9) 06/12/16 05:35 RDW 13.7 % (11.9-15.9) 06/12/16 05:35 Plt Count 178 K/MM3 (134-434) 06/12/16 05:35 MPV 7.5 fl (7.5-11.1) D 06/12/16 05:35 CMP Sodium 141 mmol/L (136-145) 06/12/16 05:35 Potassium 3.6 mmol/L (3.5-5.1) 06/12/16 05:35 Chloride 109 mmol/L (98-107) H 06/12/16 05:35 Carbon Dioxide 26 mmol/L (21-32) 06/12/16 05:35 Anion Gap 6 (8-16) L 06/12/16 05:35 BUN 10 mg/dL (7-18) D 06/12/16 05:35 Creatinine 0.8 mg/dL (0.7-1.3) 06/12/16 05:35 Creat Clearance w eGFR > 60 (>60) 06/11/16 06:17 Random Glucose 87 mg/dL (74-106) 06/12/16 05:35 Calcium 7.8 mg/dL (8.5-10.1) L 06/12/16 05:35 Total Bilirubin 0.5 mg/dL (0.2-1.0) D 06/11/16 06:17 AST 13 U/L (15-37) L 06/11/16 06:17 ALT 23 U/L (12-78) D 06/11/16 06:17 Alkaline Phosphatase 34 U/L (45-117) L 06/11/16 06:17 Total Protein 5.1 g/dl (6.4-8.2) L 06/11/16 06:17 Albumin 2.9 g/dl (3.4-5.0) L 06/11/16 06:17 CARDIAC ENZYMES Creatine Kinase 191 IU/L (39-308) 06/11/16 14:45 Troponin I 0.02 ng/ml (0.00-0.05) 06/11/16 14:45 Current Medications Generic Name Dose Route Start Last Admin Trade Name Josiahq PRN Reason Stop Dose Admin Al Hydroxide/Mg Hydroxide 30 ml 06/12/16 10:00 06/12/16 11:00 Mylanta Oral Suspension - PO 30 ml Q6H [facility] Administration Aspirin 81 mg 06/12/16 10:00 06/12/16 11:00 Ecotrin - PO 81 mg DAILY [facility] Administration Pantoprazole Sodium 40 mg 06/12/16 10:00 06/12/16 11:00 Protonix - PO 40 mg BID [facility] Administration Home Medications Medication Instructions Recorded Lisinopril [Zestril] 2.5 mg PO DAILY 06/10/16 Prasugrel HCl [Effient] 10 mg PO DAILY 06/10/16 Rosuvastatin Calcium [Crestor] 10 mg PO DAILY 06/10/16 Metoprolol Succinate [Toprol Xl -] 25 mg PO DAILY 06/11/16 ASSESSMENT AND PLAN: 56 y/o man with h/o CAD s/p RI and stenting 11/12 , and h/o PUD who presented with rectal bleed weakness, near syncope , and had a syncopal episode in ER . # s/p Rectal bleed r/o upper GI bleed due;gastitis Vs PUD his last EGD was > 5 yrs ago which showed ulcers. last colonoscopy 2 yrs ago reportedly NL on Protonix drip ,follow H&H ; IVF ; Appreciate GI consult . EGD tomorrow .if nl for colonoscopy # Syncope : due to orthostatic hypotension due to GI bleed/ acute blood loss anemia . transfuse as needed # CAD s/p stenting in 11/12. hold antiplt ( pt is only on effient not effient and aspirin ); hold BB # H/o HTN : hold ACEI and BB DVT PX : SCDS .
--- NOTE | 2016-06-12 15:19 | CON.CARD ---
Cardiology Consult (text) - Consultation Consultation Note: CC: GIB 56 yo iwth h/o CAD s/p NSTEMI '15 and PCI to pLAD (no residual disease), HL, borderline DM, GERD, PUD presents with symptomatic anemia and found to have duodenal ulcers on EGD. Gradual symptoms of fatigue, then lambert with associated fluttering/fast HR sensation, then chest/abd pain and two days of blood in stools on presentation. Still with fatigue, dyspnea walking down corridor. No further cp/abd pain/ palps. no orthopnea, pnd, le edema, dizziness, claudication, transient neurologic symptoms. No f/c/s, n/v/d, headache, rashes, cough, congestion, visual disturbances. PMhx: per hpi PSHx: Appendectomy Social hx: Former smoker, social etoh, no illicts Fam hx: Mother ( [place] 67) Ambulatory Orders Lisinopril [Zestril] 2.5 mg PO DAILY 06/10/16 Prasugrel HCl [Effient] 10 mg PO DAILY 06/10/16 Rosuvastatin Calcium [Crestor] 10 mg PO DAILY 06/10/16 Metoprolol Succinate [Toprol Xl -] 25 mg PO DAILY 06/11/16 Current Medications Al Hydroxide/Mg Hydroxide (Mylanta Oral Suspension -) 30 ml PO Q6H [facility] Last Admin: 06/12/16 11:00 Dose: 30 ml Aspirin (Ecotrin -) 81 mg PO DAILY [facility] Last Admin: 06/12/16 11:00 Dose: 81 mg Pantoprazole Sodium (Protonix -) 40 mg PO BID [facility] Last Admin: 06/12/16 11:00 Dose: 40 mg Vital Signs - 24 hr 06/11/16 06/11/16 06/12/16 18:00 21:32 01:00 Temperature 98.8 F 98.4 F Pulse Rate 68 80 74 Respiratory 18 20 20 Rate Blood Pressure 119/69 125/75 92/54 O2 Sat by Pulse Oximetry (%) 06/12/16 06/12/16 06/12/16 05:00 08:00 09:20 Temperature 98 F 98.2 F 98.5 F Pulse Rate 98 H 76 87 Respiratory 20 14 20 Rate Blood Pressure 100/50 98/50 98/53 O2 Sat by Pulse 100 Oximetry (%) 03/06/12/16 06/12/16 09:35 09:50 11:47 Temperature Pulse Rate 78 72 Respiratory 21 22 Rate Blood Pressure 98/55 105/56 O2 Sat by Pulse 100 100 96 Oximetry (%) Intake & Output 06/10/16 06/11/16 06/12/16 06/13/16 07:59 07:59 07:59 07:59 Intake Total 1860 100 Output Total 200 Balance -200 1860 100 Weight 189 lb NAD, calm JVD flat, neck supple ctab, nl effort rrr nl s1, s2 no mrg + bs soft nt nd, ext without e/c/c + dp/pt aaox3 no carotid bruits no pallor, diaphoresis CBC, BMP 06/12/16 05:35 06/12/16 05:35 Laboratory Tests 06/10/16 06/10/16 06/11/16 16:50 16:50 06:17 Hgb 7.4 L D Potassium Troponin I < 0.02 D Albumin 2.9 L 06/11/16 06/11/16 06/12/16 06:17 14:45 05:35 Hgb Potassium 3.6 Troponin I < 0.02 0.02 Albumin EKG 06/10: sinus tach. inferolateral ST sagging EKG 06/11: SR, inferolateral t wave flattening/inversions tele: sr/sinus tach. Cath 10/2014: 90-95% pLAD lesion --> Xience; remainder WNL, EDP normal, nl EF; Stress nuc 05/16: No sx's. 8:01min; no STs; normal perfusion; no TID; EF 66%. No WMA. Echo 10/2014: Nl LV/RV, no significant valvular abnormalities. 56 yo with h/o CAD s/p NSTEMI '15 and PCI to pLAD (no residual disease), HL, borderline DM, GERD, PUD presents with symptomatic anemia and found to have duodenal ulcers on EGD. CAD s/p NSTEMI '15 and PCI to pLAD (no residual disease) c/b GIB - Ok to hold effient, con't asa. - resume crestor - resume metoprolol and lisinopril, once bp normalizes - subtle ST-T wave EKG changes in setting of anemia. CE's remained negative. Asymptomatic. Not c/w acs. Keep hgb > 8. - electrolyte repletion prn. HL - statin as above GIB/anemia - per GI/pmd - adjustment of anti-platelets as above.
[2016-06-12] MEDS ORDERED: POTASSIUM CHLORIDE TABS 20 MEQ TABLET.ER (FP) PO ONE (17:09)
[2016-06-12] MEDS ORDERED: ROSUVASTATIN CA 10 MG TABLET (FP) PO SCH (22:00)
[2016-06-13] MEDS ORDERED: ACETAMINOPHEN 325 MG TABLET (FP) PO ONE (01:30)
[2016-06-13] MEDS: MAG HYDROX/AL HYDROX/SIMETH 30 ML UNIT-DOSE CUP PO SCH ×2 (08:04→09:22)
[2016-06-13 08:07] LABS: SERUM IRON 27 ug/dL (38-169); TOTAL IRON BINDING CAPACITY 261 ug/dL (250-450); UIBC 234 ug/dL (111-343)
[2016-06-13 08:07] LABS: BASOPHIL 0.5 % (0-2.0); EOSINOPHIL 1.7 % (0-4.5); MCH 28.6 pg (25.7-33.7); MCHC 33.1 g/dl (32.0-35.9); MEAN CELL VOLUME 86.4 fl (80-96); MEAN PLT VOLUME 7.6 fl (7.5-11.1); NEUTROPHILS 63.9 % (42.8-82.8); PLATELET COUNT 216 K/MM3 (134-434); RDW 13.9 % (11.9-15.9); WHITE BLOOD COUNT 11.4 K/mm3 (4.0-10.0)
[2016-06-13 08:45] LABS: CALCIUM 8.2 mg/dL (8.5-10.1); CREATININE 0.9 mg/dL (0.7-1.3)
[2016-06-13] MEDS: PANTOPRAZOLE 40 MG TABLET (FP) PO SCH (09:22)
[2016-06-13] MEDS: ASPIRIN COATED 81 MG TABLET.EC PO SCH (09:22)
--- NOTE | 2016-06-13 10:37 | PN ---
Progress Note (short form) - Note Progress Note: s: feels well, ready to go home; no cp sob palps dizzy o: Vital Signs Period Temp Pulse Resp BP Sys/Stephen Pulse Ox Last 24 Hr 97.2 F-100.0 F 70-106 16-20 95-141/54-79 96-96 NAD, calm JVD flat, neck supple ctab, nl effort rrr nl s1, s2 no mrg + bs soft nt nd, ext without e/c/c aaox3 no pallor, diaphoresis Home Medications Medication Instructions Recorded Lisinopril [Zestril] 2.5 mg PO DAILY 06/10/16 Rosuvastatin Calcium [Crestor] 10 mg PO DAILY 06/10/16 Metoprolol Succinate [Toprol XL -] 25 mg PO DAILY 06/11/16 Aspirin Coated [Ecotrin -] 81 mg PO DAILY #30 tab 06/13/16 Ferrous Sulfate 325 mg PO DAILY #30 tablet 06/13/16 Pantoprazole Sodium [Protonix -] 40 mg PO BID #60 tab 06/13/16 Rosuvastatin [Crestor -] 10 mg PO HS tablet 06/13/16 CBC, BMP 06/13/16 05:35 06/13/16 05:35 EKG 06/10: sinus tach. inferolateral ST sagging EKG 06/11: SR, inferolateral t wave flattening/inversions tele: sr/sinus tach Cath 10/2014: 90-95% pLAD lesion --> Xience; remainder WNL, EDP normal, nl EF; Stress nuc 05/16: No sx's. 8:01min; no STs; normal perfusion; no TID; EF 66%. No WMA. Echo 10/2014: Nl LV/RV, no significant valvular abnormalities. A/p: 56 yo with h/o CAD s/p NSTEMI '15 and PCI to pLAD (no residual disease), HL, borderline DM, GERD, PUD presents with symptomatic anemia and found to have duodenal ulcers on EGD. CAD s/p NSTEMI '15 and PCI to pLAD (no residual disease) c/b GIB - Ok to hold effient, con't asa. - cont crestor - cont metoprolol and lisinopril - subtle ST-T wave EKG changes in setting of anemia. CE's remained negative. Asymptomatic. Not c/w acs. Keep hgb > 8. - electrolyte repletion prn. HL - statin as above GIB/anemia - found to have DU on egd - off effient now and on ppi, plan per GI/pmd cardiac lee stable for dc
[2016-06-13 10:39] VITALS: BP 116/63; PULSE 85; TEMP 98.4
--- NOTE | 2016-06-13 13:05 | PATH ---
Surgical Pathology Report Patient Name: ANNA MEDEL [facility]. Rec. #: [id number] /Age/Gender: 1960 (Age: 56) / M Account: [id number] Location: 4 W TELEMETRY U Taken: 06/12/2016 Received: 06/12/2016 Reported: 06/13/2016 Physicians: Debbie Martinez M.D. Specimen(s) Received BX STOMACH Clinical History GI bleeding, rule out ulcer Duodenal ulcers and gastritis Final Diagnosis STOMACH, BIOPSY: GASTRIC ANTRAL MUCOSA WITH ACTIVE MARKED CHRONIC GASTRITIS. H. PYLORI ORGANISMS IDENTIFIED WITH GIEMSA STAIN (RARE ORGANISMS). Electronically Signed Diaz Moreno M.D. Gross Description Received in formalin, labeled "biopsy stomach" are 4 nix, irregular portions of soft tissue ranging from 0.3-0.5 cm in greatest dimension. The specimens are submitted in toto in one cassette. /06/12/201606/12/2016
--- NOTE | 2016-06-13 13:15 | DS ---
Physical Exam: SUBJECTIVE: Patient seen and examined. no more GI bleeding complains of right hip pain OBJECTIVE: Vital Signs Period Temp Pulse Resp BP Sys/Stephen Pulse Ox Last 24 Hr 97.2 F-100.0 F 70-106 16-20 95-141/54-79 96-99 PHYSICAL EXAM GENERAL: The patient is awake, alert, and fully oriented, in no acute distress. HEAD: Normal with no signs of trauma. EYES: PERRL, extraocular movements intact, conjunctival pallor NECK: supple. LUNGS: Breath sounds equal, clear to auscultation bilaterally, no wheezes, no crackles, no accessory muscle use. HEART: Regular rate and rhythm, S1, S2 without murmur, rub or gallop. ABDOMEN: Soft, nontender, nondistended, normoactive bowel sounds, no guarding, no rebound, no hepatosplenomegaly, no masses. NEUROLOGICAL: Cranial nerves II through XII grossly intact LABS Laboratory Results - last 24 hr 06/12/16 06/13/16 06/13/16 05:35 05:35 05:35 WBC 11.4 H RBC 2.97 L Hgb 8.5 L Hct 25.7 L MCV 86.4 MCHC 33.1 RDW 13.9 Plt Count 216 D MPV 7.6 Neutrophils % 63.9 Lymphocytes % 22.0 D Monocytes % 11.9 H Eosinophils % 1.7 Basophils % 0.5 Retic Count 3.83 H Sodium 143 Potassium 3.9 Chloride 109 H Carbon Dioxide 28 Anion Gap 6 L BUN 7 D Creatinine 0.9 Random Glucose 92 Calcium 8.2 L Iron 27 L TIBC 261 Iron Saturation 10 L HOSPITAL COURSE: Date of Admission:06/10/16 Date of Discharge: 06/13/16 56M history of CAD s/p stent HTN HLA presented to the ED with GI bleed. Syncopized in ED after bowel movement. Found to have acute blood loss anemia. Given 2 units PRBCs. Patient on effient. Taken to EGD by GI and found 2 duodenal bulb ulcer that were no longer bleeding at the time. Effient stopped. Aspirin started. Seen by cardiology who agreed with the medication change. Restarted on all his home meds. While ambulating last night patient had right hip pain which he thinks is from the fall. XRay right hip done which did not show any acute pathology or fracture. PAtient discharge with PMD GI and cardiology follow up and protonix PO BID and iron. Stable for discharge. 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 eat a low sodium low cholesterol diet if your symptoms worsen or experience bleeding again go to the nearest emergency room call to make your appointments Referrals: Claus Williamson MD [Primary Care Provider] - Dwight Del Rio MD [Staff Physician] - Debbie Martinez MD [Staff Physician] - Disposition: HOME - Home Medications Comprehensive Discharge Medication List: Ambulatory Orders Lisinopril [Zestril] 2.5 mg PO DAILY 06/10/16 Rosuvastatin Calcium [Crestor] 10 mg PO DAILY 06/10/16 Metoprolol Succinate [Toprol XL -] 25 mg PO DAILY 06/11/16 Aspirin Coated [Ecotrin -] 81 mg PO DAILY #30 tab 06/13/16 Ferrous Sulfate 325 mg PO DAILY #30 tablet 06/13/16 Pantoprazole Sodium [Protonix -] 40 mg PO BID #60 tab 06/13/16 Rosuvastatin [Crestor -] 10 mg PO HS tablet 06/13/16 This patient is new to me today: No Emergency Visit: No Critical Care patient: No - Discharge Referral Referred to [facility] Med [facility] No
--- NOTE | 2016-06-13 19:31 | PN ---
Teaching Attending Note Name of Resident: Franco Hoang ATTENDING PHYSICIAN STATEMENT I saw and evaluated the patient. I reviewed the resident's note and discussed the case with the resident. I agree with the resident's findings and plan as documented. Vital Signs Temperature 98.4 F 06/13/16 10:00 Pulse Rate 85 06/13/16 10:00 Respiratory Rate 20 06/13/16 10:00 Blood Pressure 116/63 06/13/16 10:00 O2 Sat by Pulse Oximetry (%) 99 06/13/16 10:00 CBCD WBC 11.4 K/mm3 (4.0-10.0) H 06/13/16 05:35 RBC 2.97 M/mm3 (4.00-5.60) L 06/13/16 05:35 Hgb 8.5 GM/dL (11.7-16.9) L 06/13/16 05:35 Hct 25.7 % (35.4-49) L 06/13/16 05:35 MCV 86.4 fl (80-96) 06/13/16 05:35 MCHC 33.1 g/dl (32.0-35.9) 06/13/16 05:35 RDW 13.9 % (11.9-15.9) 06/13/16 05:35 Plt Count 216 K/MM3 (134-434) D 06/13/16 05:35 MPV 7.6 fl (7.5-11.1) 06/13/16 05:35 CMP Sodium 143 mmol/L (136-145) 06/13/16 05:35 Potassium 3.9 mmol/L (3.5-5.1) 06/13/16 05:35 Chloride 109 mmol/L (98-107) H 06/13/16 05:35 Carbon Dioxide 28 mmol/L (21-32) 06/13/16 05:35 Anion Gap 6 (8-16) L 06/13/16 05:35 BUN 7 mg/dL (7-18) D 06/13/16 05:35 Creatinine 0.9 mg/dL (0.7-1.3) 06/13/16 05:35 Creat Clearance w eGFR > 60 (>60) 06/11/16 06:17 Random Glucose 92 mg/dL (74-106) 03/16/17 05:35 Calcium 8.2 mg/dL (8.5-10.1) L 06/13/16 05:35 Total Bilirubin 0.5 mg/dL (0.2-1.0) D 06/11/16 06:17 AST 13 U/L (15-37) L 06/11/16 06:17 ALT 23 U/L (12-78) D 06/11/16 06:17 Alkaline Phosphatase 34 U/L (45-117) L 06/11/16 06:17 Total Protein 5.1 g/dl (6.4-8.2) L 06/11/16 06:17 Albumin 2.9 g/dl (3.4-5.0) L 06/11/16 06:17 CARDIAC ENZYMES Creatine Kinase 191 IU/L (39-308) 06/11/16 14:45 Troponin I 0.02 ng/ml (0.00-0.05) 06/11/16 14:45 Home Medications Medication Instructions Recorded Lisinopril [Zestril] 2.5 mg PO DAILY 06/10/16 Rosuvastatin Calcium [Crestor] 10 mg PO DAILY 06/10/16 Metoprolol Succinate [Toprol XL -] 25 mg PO DAILY 06/11/16 Aspirin Coated [Ecotrin -] 81 mg PO DAILY #30 tab 06/13/16 Ferrous Sulfate 325 mg PO DAILY #30 tablet 06/13/16 Pantoprazole Sodium [Protonix -] 40 mg PO BID #60 tab 06/13/16 Rosuvastatin [Crestor -] 10 mg PO HS tablet 06/13/16 ASSESSMENT AND PLAN: 56 y/o man with h/o CAD s/p OR and stenting 11/12 , and h/o PUD who presented with rectal bleed weakness, near syncope , and had a syncopal episode in ER . # s/p Rectal bleed s/p EGD and was found to have 2 duodenal bulb ulcer that were no longer bleeding at the time. Patient was on Effient which was stopped since patient had a stent placement 2 yrs ago. The only medication was ok to continue was Aspirin 81mg daily. Patient was discharged home today on Protonix. # Syncope : due to orthostatic hypotension due to GI bleed/ acute blood loss anemia s/p transfusion # CAD s/p stenting in 11/12. off effient continue aspirin ); continue BB # H/o HTN : continue ACEI and BB DVT PX : SCDS .
== END 2016-06-13 10:32 | disposition home or self-care (01) | DRG 378 ==
LOC: JER 15:35 → JERBED 18:22 → J4W 06-11 01:57
PROVIDERS: ADMIT Internal Medicine; ATTEND Internal Medicine
PROC: 30233N1 Transfusion of Nonautologous Red Blood Cells into Peripheral Vein, Percutaneous Approach (ICD-10-PCS; 2016-06-10)
PROC: 0DB68ZX Excision of Stomach, Via Natural or Artificial Opening Endoscopic, Diagnostic (ICD-10-PCS; 2016-06-12)
PROC: 0DB98ZX Excision of Duodenum, Via Natural or Artificial Opening Endoscopic, Diagnostic (ICD-10-PCS; principal; 2016-06-12 08:30)
DX: K92.2 Gastrointestinal hemorrhage, unspecified (principal); D62 Acute posthemorrhagic anemia; I25.2 Old myocardial infarction; I25.10 Atherosclerotic heart disease of native coronary artery without angina pectoris; I10 Essential (primary) hypertension; E78.5 Hyperlipidemia, unspecified; K21.9 Gastro-esophageal reflux disease without esophagitis; K27.9 Peptic ulcer, site unspecified, unspecified as acute or chronic, without hemorrhage or perforation; R55 Syncope and collapse; K26.9 Duodenal ulcer, unspecified as acute or chronic, without hemorrhage or perforation; Z95.5 Presence of coronary angioplasty implant and graft; Z87.891 Personal history of nicotine dependence
CPT/HCPCS: 36415; 36430; 71010-TC; 73502-TC-RT; 80048; 80053; 82272; 82550; 82553; 82728; 83540; 83550; 83735; 84100; 84484; 85025; 85027; 85044; 85610; 86140; 86850; 86900; 86901; 86922; 88305-TC; 93005; 93010; 99285-25; P9038; P9058

== ENCOUNTER 2024-06-16 12:14 | Observation (INO) | payer BC, OTHER ==
[2024-06-16] MEDS ORDERED: ASPIRIN 81 MG CHEWABLE TABLETS ONE (12:46)
[2024-06-16] MEDS: ASPIRIN 81 MG CHEWABLE TABLETS PO ONE (12:50)
[2024-06-16 13:52] LABS: MCHC 32.6 g/dl (32.3-36.5); MEAN CELL VOLUME 85.7 fl (79.0-92.2); MEAN PLT VOLUME 9.3 fl (9.4-12.4); PLATELET COUNT # 275 x10^3/uL (163-337); RDW 13.7 % (12.2-16.4)
[2024-06-16 13:59] LABS: INR 1.05 (0.83-1.09); PROTHROMBIN TIME (PATIENT) 11.4 SEC (9.7-13.0)
[2024-06-16 14:02] LABS: ACTIVATED PTT 35.5 SECONDS (25.2-36.5)
[2024-06-16 14:12] LABS: POTASSIUM 4.4 mmol/L (3.5-5.1)
[2024-06-16 14:14] LABS: CALCIUM 9.2 mg/dL (8.5-10.1)
[2024-06-16 14:15] LABS: ALBUMIN 3.9 g/dl (3.4-5.0); BLOOD UREA NITROGEN 10.3 mg/dL (7-18); MAGNESIUM 2.3 mg/dL (1.8-2.4)
[2024-06-16 14:18] LABS: CREATININE 0.9 mg/dL (0.55-1.3)
[2024-06-16 14:20] LABS: BILIRUBIN,TOTAL 0.4 mg/dL (0.2-1); TOT PROT 7.2 g/dl (6.4-8.2)
[2024-06-16] MEDS ORDERED: ROSUVASTATIN CA 5 MG TABLET ONE (20:52)
[2024-06-16] MEDS ORDERED: HEPARIN NA (PORCINE) 5,000 UNITS/ML 1ML VIAL ONE (20:52)
[2024-06-16] MEDS ORDERED: PANTOPRAZOLE 40 MG TABLET PO ONE (20:52)
[2024-06-16] MEDS: ROSUVASTATIN CA 10 MG TABLET PO SCH (21:01)
[2024-06-16] MEDS: HEPARIN NA (PORCINE) 5,000 UNITS/ML 1ML VIAL SQ SCH (21:01)
[2024-06-16] MEDS: PANTOPRAZOLE 40 MG TABLET PO SCH (21:02)
[2024-06-16 23:00] VITALS: BMI 28.6
[2024-06-17 07:57] LABS: ABSOLUTE IMMATURE GRANULOCYTES 0.02 x10^3/uL (0.0-0.031); BASOPHILS # 0.06 x10^3/uL (0.01-0.08); EOSINOPHILS # 0.27 x10^3/uL (0.04-0.54); HEMATOCRIT 42.2 % (40.1-51.0); HEMOGLOBIN 13.5 g/dL (13.7-17.5); MEAN CELL VOLUME 86.1 fl (79.0-92.2); MEAN PLT VOLUME 9.4 fl (9.4-12.4); MONOCYTE # 0.98 x10^3/uL (0.30-0.82); MONOCYTE % 10.9 % (5.3-12.2); PLATELET COUNT # 289 x10^3/uL (163-337); RDW 13.5 % (12.2-16.4)
[2024-06-17 08:16] LABS: POTASSIUM 4.4 mmol/L (3.5-5.1)
[2024-06-17 08:23] LABS: BLOOD UREA NITROGEN 13.2 mg/dL (7-18)
[2024-06-17 08:25] LABS: BILIRUBIN,TOTAL 0.4 mg/dL (0.2-1); CALCIUM 8.8 mg/dL (8.5-10.1)
[2024-06-17 08:26] LABS: ALBUMIN 3.5 g/dl (3.4-5.0); MAGNESIUM 2.4 mg/dL (1.8-2.4); TOT PROT 6.6 g/dl (6.4-8.2)
[2024-06-17 08:28] LABS: CREATININE 0.9 mg/dL (0.55-1.3)
[2024-06-17] MEDS: LISINOPRIL 5 MG TABLET PO SCH (09:23)
[2024-06-17] MEDS: metoPROLOL SUCCINATE 25 MG TAB.SR.24H (FP) PO SCH (09:23)
[2024-06-17] MEDS: ASPIRIN COATED 81 MG TABLET.EC PO SCH (09:24)
[2024-06-17 10:47] VITALS: BP 117/75; PULSE 72; RESP 22; TEMP 98.6
== END 2024-06-17 12:59 | disposition home or self-care (01) ==
LOC: JER 12:14 → JERBED 14:21 → J4W 06-17 00:10
PROVIDERS: ADMIT Internal Medicine; ATTEND Internal Medicine
DX: I25.10 Atherosclerotic heart disease of native coronary artery without angina pectoris (principal); I10 Essential (primary) hypertension; M79.641 Pain in right hand; R73.03 Prediabetes; E78.5 Hyperlipidemia, unspecified; R07.9 Chest pain, unspecified
CPT/HCPCS: 36415; 71046-TC-FY; 80053; 80061; 82550; 82553; 82962; 83735; 84443; 84484; 85025; 85027; 85610; 85730; 93005; 93010; 99285-25; G0378